=== PATIENT | female | born 1980 | race Caucasian/White ===

== ENCOUNTER 2018-09-29 08:15 | Emergency (ER) | payer OTHER ==
[~2018-09-29] VITALS: Ht 160 cm; Wt 61.4 kg
[~2018-09-29 08:15] MED LIST: PREN1TAB49 PO; RANI150T35 PO; SUCR1TAB56 PO
[2018-09-29 08:17] VITALS: Ht 160 cm; Wt 61.4 kg
[2018-09-29] MEDS ORDERED: FAMOTIDINE 20 MG INJ IV STA (08:29)
[2018-09-29] MEDS ORDERED: LACTATED RINGER'S 1,000 ML IV STA (08:29)
[2018-09-29] MEDS ORDERED: ONDANSETRON 4 MG INJ IV STA (08:29)
--- NOTE | 2018-09-29 08:31 | ERD ---
ER Documentation Chief Complaint Chief Complaint epigastric pain w/vomitting since am HPI 38-year-old female with no significant prior medical history status post remote appendectomy, cholecystectomy, C-sections and bilateral tubal ligation presents to the ED complaining of acute onset of unprovoked, severe, nonradiating, burning epigastric pain that started several hours ago. Nausea with multiple episodes of nonbloody nonbilious emesis. No hematochezia or melena. No relieving or exacerbating factors. Denies dysuria, polyuria, hematuria or flank pain. No vaginal discharge or bleeding. No chest pain, palpitations, shortness of breath or cough. No skin rash. No fevers or chills. Patient reports an ED evaluation 2005 for exactly the same symptoms. ROS All systems reviewed and are negative except as per history of present illness. Medications Home Meds Active Scripts Famotidine* (Pepcid*) 20 Mg Tablet, 20 MG PO BID for 10 Days, TAB Prov:REGIS MONTES MD 09/29/18 Sucralfate* (Carafate*) 1 Gm Tab, 1 GM PO QID for 7 Days, TAB Prov:REGIS MONTES MD 09/29/18 Allergies Allergies: Coded Allergies: ketorolac (Verified Allergy, Mild, ANXIETY, 09/29/18) morphine (Unverified Allergy, Unknown, vision loss, 09/29/18) PMhx/Soc Reviewed in chart. As per HPI. History of Surgery: Yes (APPENDECTOMY, GALLBLADDER REMOVED, X2 ) Anesthesia Reaction: No Hx Neurological Disorder: No Hx Respiratory Disorders: No Hx Cardiac Disorders: No Hx Psychiatric Problems: No Hx Miscellaneous Medical Probl: No Hx Alcohol Use: No Hx Substance Use: No Hx Tobacco Use: No FmHx No cancer or heart disease Physical Exam Vitals Vital Signs Date Temp Pulse Resp B/P (MAP) Pulse Ox O2 O2 Flow FiO2 Time Delivery Rate 09/29/18 106/66 10:21 (79) 09/29/18 98.4 63 16 113/73 100 Room Air 09:32 (86) 09/29/18 97.7 62 18 115/59 100 08:17 (77) Physical Exam Const: Moderate distress Head: Atraumatic Eyes: Normal Conjunctiva. Anicteric ENT: Normal External Ears, Nose and Mouth. Neck: Full range of motion. No lymphadenopathy or tenderness. Breath sounds are equal and Resp: Breath sounds are equal and clear to auscultation bilaterally Cardio: Regular rate and rhythm, no murmurs Abd: Soft, mild epigastric tenderness but no rebound or guarding. No right or left lower quadrant tenderness. Non distended. Normal bowel sounds Skin: No petechiae or rashes Back: No midline or CVA tenderness Ext: No cyanosis, or edema Neur: Awake and alert. No focal deficit Psych: Anxious but not depressed Result Diagram: 09/29/18 0809/29/18 08 Results 24 hrs Laboratory Tests Test 09/29/18 08:53 09/29/18 09:02 White Blood Count 6.0 10^3/ul Red Blood Count 4.45 10^6/ul Hemoglobin 11.7 g/dl Hematocrit 36.7 % Mean Corpuscular Volume 82.5 fl Mean Corpuscular Hemoglobin 26.3 pg Mean Corpuscular Hemoglobin Concent 31.9 g/dl Red Cell Distribution Width 13.8 % Platelet Count 235 10^3/UL Mean Platelet Volume 10.1 fl Immature Granulocytes % 0.500 % Neutrophils % 55.3 % Lymphocytes % 34.0 % Monocytes % 7.2 % Eosinophils % 2.7 % Basophils % 0.3 % Nucleated Red Blood Cells % 0.0 /100WBC Immature Granulocytes # 0.030 10^3/ul Neutrophils # 3.3 10^3/ul Lymphocytes # 2.0 10^3/ul Monocytes # 0.4 10^3/ul Eosinophils # 0.2 10^3/ul Basophils # 0.0 10^3/ul Nucleated Red Blood Cells # 0.0 10^3/ul Urine Color YELLOW Urine Clarity SLIGHTLY CLOUDY Urine pH 5.0 Urine Specific [place] 1.021 Urine Ketones NEGATIVE mg/dL Urine Nitrite NEGATIVE mg/dL Urine Bilirubin NEGATIVE mg/dL Urine Urobilinogen NEGATIVE mg/dL Urine Leukocyte Esterase TRACE Lul/ul Urine Microscopic RBC 2 /HPF Urine Microscopic WBC 2 /HPF Urine Squamous Epithelial Cells FEW /HPF Urine Bacteria FEW /HPF Urine Hemoglobin 1+ mg/dL Urine Glucose NEGATIVE mg/dL Urine Total Protein NEGATIVE mg/dl Sodium Level 139 mmol/L Potassium Level 3.8 mmol/L Chloride Level 107 mmol/L Carbon Dioxide Level 26 mmol/L Anion Gap 6 Blood Urea Nitrogen 14 mg/dl Creatinine 0.59 mg/dl Est Glomerular Filtrat Rate mL/min > 60 mL/min Glucose Level 148 mg/dl Calcium Level 9.0 mg/dl Total Bilirubin 0.3 mg/dl Direct Bilirubin 0.00 mg/dl Indirect Bilirubin 0.3 mg/dl Aspartate Amino Transf (AST/SGOT) 31 IU/L Alanine Aminotransferase (ALT/SGPT) 28 IU/L Alkaline Phosphatase 62 IU/L Total Protein 7.6 g/dl Albumin 4.2 g/dl Globulin 3.40 g/dl Albumin/Globulin Ratio 1.23 Lipase 122 U/L POC Beta HCG, Qualitative NEGATIVE Current Medications Medications Dose Sig/Lisa Start Time Status Last (Trade) Ordered Route PRN Stop Time Admin Dose Reason Admin Lactated 1,000 ml @ Q1H STAT 09/29/18 DC 09/29/18 Ringer's 1,000 mls/hr IV 08:29 09/29/18 08:46 09:28 Ondansetron 4 mg ONCE STAT 09/29/18 DC 09/29/18 HCl (Zofran IV 08:29 09/29/18 08:46 Inj) 08:32 Famotidine 20 mg ONCE STAT 09/29/18 DC 09/29/18 (Pepcid Iv) IV 08:29 09/29/18 08:46 08:32 40 ml ONCE ONCE 09/29/18 DC 09/29/18 Miscellaneous PO 09:00 09/29/18 08:46 Medication 09:01 (Gi Cocktail (2)) 100 ml @ ONCE STAT 09/29/18 DC Levetiracetam 400 mls/hr IVPB 09:46 09/29/18 09:51 Procedures/MDM DOCUMENTS REVIEWED: ED nurse, prior ED, prior records LAB INTERPRETATION: CBC to evaluate for leukocytosis, anemia and thrombocytopenia is unremarkable. Chemistry reveals no evidence of electrolyte abnormalities or renal insufficiency. Liver function tests to evaluate for hyperbilirubinemia and transaminitis is negative. Lipase to evaluate for pancreatitis is negative. REEVALUATION: Time: 09:22. Doing well. Pain resolved. Abdomen soft, nontender. MEDICAL DECISION MAKIN-year-old female with no significant prior medical history status post remote appendectomy, cholecystectomy, C-sections and bilateral tubal ligation presents to the ED complaining of acute, burning epigastric. No hyperbilirubinemia, elevated liver function tests or signs of biliary pathology or retained stone. No elevated lipase or pancreatitis. Patient is not . No urinary tract infection or pyelonephritis. 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 Presentation consistent with gastritis/GERD versus peptic ulcer disease and pain relieved with intravenous H2 blockers and GI cocktail. No evidence of GI bleeding. Abdominal exam is benign without significant tenderness, rebound, guarding, signs of peritonitis or indication for advanced imaging. Stable for discharge with Pepcid, Carafate, Zofran precautionary instructions and o utpatient follow-up as counseled. Counseled patient and family regarding diagnostic workup, diagnosis and need for followup. Understands to return to ED if symptoms recur, worsen or any other concerns. Departure Diagnosis: Primary Impression: Abdominal pain, acute, epigastric Additional Impression: Acute gastritis without bleeding Gastritis type: unspecified gastritis Qualified Codes: K29.00 - Acute gastritis without bleeding Condition: Stable (Improved) REGIS MONTES MD Sep 29, 2018 08:30
[2018-09-29] MEDS ORDERED: LIDOCAINE/MYLANTA 40 ML BTL PO ONE (09:00)
[2018-09-29 09:32] VITALS: PULSE 63; RESP 16
[2018-09-29] MEDS ORDERED: LEVETIRACETAM 1000 MG (PMX) 100 ML IVPB STA (09:46)
[2018-09-29] MEDS ORDERED: SUCR1TAB56 PO (10:04)
[2018-09-29] MEDS ORDERED: FAMO-96 PO (10:04)
[2018-09-29 10:21] VITALS: BP 106/66
== END 2018-09-29 10:01 | disposition home or self-care (01) ==
LOC: E/R 08:15
DX: K29.00 Acute gastritis without bleeding (principal)
CPT/HCPCS: 36415; 80053; 81001; 81025; 83690; 85025; 96361; 96374; 96375; J1953; J2405; J7120; Z7502; Z7610

== ENCOUNTER 2019-02-20 22:43 | Emergency (ER) | payer OTHER ==
[~2019-02-20] VITALS: Ht 160 cm; Wt 65.9 kg
[~2019-02-20 22:43] MED LIST changes: +FAMO-96 PO; -PREN1TAB49 PO; -RANI150T35 PO
[2019-02-20 22:55] VITALS: Ht 160 cm; Wt 65.9 kg
[2019-02-20] MEDS ORDERED: SOD CHLORIDE 0.9% 1,000 ML IV STA (23:24)
[2019-02-20] MEDS ORDERED: ONDANSETRON 4 MG INJ IV STA (23:24)
[2019-02-20] MEDS ORDERED: ACETAMINOPHEN 325 MG TAB PO ONE (23:30)
[2019-02-21] MEDS ORDERED: IOHEXOL 300MG/ML 150 ML BTL ONE (00:45)
[2019-02-21] MEDS ORDERED: SOD CHLORIDE 0.9% 100 ML ONE (00:45)
[2019-02-21] MEDS ORDERED: IBUP-1542 PO (01:15)
[2019-02-21 01:35] VITALS: BP 109/54; PULSE 64; RESP 17
--- NOTE | 2019-02-21 04:05 | ERD ---
ER Documentation Chief Complaint Chief Complaint HAs, fatigue, chills x 2 days HPI 38-year-old female presents to the emergency department complaining of intermittent fevers, chills, myalgia and left lower quadrant pain which is curr ently rated 6/10 in severity. She took some Advil at home with relief. He denies sore throat, dysuria, cough, nausea, vomiting, diarrhea, nasal congestion, or other symptoms at this time. ROS All systems reviewed and are negative except as per history of present illness. Medications Home Meds Active Scripts Ibuprofen* (Motrin*) 600 Mg Tab, 600 MG PO Q6, #30 TAB Prov:SIGRID THOMPSON PA-C 02/21/19 Famotidine* (Pepcid*) 20 Mg Tablet, 20 MG PO BID for 10 Days, TAB Prov:REGIS MONTES MD 09/29/18 Sucralfate* (Carafate*) 1 Gm Tab, 1 GM PO QID for 7 Days, TAB Prov:REGIS MONTES MD 09/29/18 Allergies Allergies: Coded Allergies: ketorolac (Verified Allergy, Mild, ANXIETY, 09/29/18) morphine (Unverified Allergy, Unknown, vision loss, 09/29/18) PMhx/Soc History of Surgery: Yes (APPENDECTOMY, GALLBLADDER REMOVED, X2, TUBAL LIGATION) Anesthesia Reaction: No Hx Neurological Disorder: No Hx Respiratory Disorders: No Hx Cardiac Disorders: No Hx Psychiatric Problems: No Hx Miscellaneous Medical Probl: No Hx Alcohol Use: No Hx Substance Use: No Hx Tobacco Use: No Smoking Status: Never smoker FmHx Family History: No diabetes Physical Exam Vitals Vital Signs Date Temp Pulse Resp B/P (MAP) Pulse Ox O2 O2 Flow FiO2 Time Delivery Rate 02/21/19 97.8 64 17 109/54 99 Room Air 01:35 (72) 02/20/19 98.4 67 18 106/53 100 22:55 (70) Physical Exam Const: No acute distress Head: Atraumatic Eyes: Normal Conjunctiva ENT: Normal External Ears, Nose and Mouth. Neck: Full range of motion. No meningismus. Resp: Clear to auscultation bilaterally Cardio: Regular rate and rhythm, no murmurs Abd: Soft, tenderness palpation of the left lower quadrant without rebound tenderness or guarding, no McBurney's point tenderness, non distended. Normal bowel sounds Skin: No petechiae or rashes Back: No midline or flank tenderness Ext: No cyanosis, or edema Neur: Awake and alert Psych: Normal Mood and Affect Result Diagram: 02/20/19 2338 02/20/19 2338 Results 24 hrs Laboratory Tests Test 02/20/19 23:38 02/21/19 00:00 White Blood Count 7.2 10^3/ul Red Blood Count 4.39 10^6/ul Hemoglobin 11.8 g/dl Hematocrit 36.7 % Mean Corpuscular Volume 83.6 fl Mean Corpuscular Hemoglobin 26.9 pg Mean Corpuscular Hemoglobin Concent 32.2 g/dl Red Cell Distribution Width 13.5 % Platelet Count 209 10^3/UL Mean Platelet Volume 10.1 fl Immature Granulocytes % 0.100 % Neutrophils % 63.0 % Lymphocytes % 26.0 % Monocytes % 5.8 % Eosinophils % 4.7 % Basophils % 0.4 % Nucleated Red Blood Cells % 0.0 /100WBC Immature Granulocytes # 0.010 10^3/ul Neutrophils # 4.6 10^3/ul Lymphocytes # 1.9 10^3/ul Monocytes # 0.4 10^3/ul Eosinophils # 0.3 10^3/ul Basophils # 0.0 10^3/ul Nucleated Red Blood Cells # 0.0 10^3/ul Prothrombin Time 12.0 Sec Prothrombin Time Ratio 0.9 INR International Normalized Ratio 0.88 Activated Partial Thromboplast Time 30.9 Sec Urine Color COLORLESS Urine Clarity CLEAR Urine pH 7.0 Urine Specific [place] 1.004 Urine Ketones NEGATIVE mg/dL Urine Nitrite NEGATIVE mg/dL Urine Bilirubin NEGATIVE mg/dL Urine Urobilinogen NEGATIVE mg/dL Urine Leukocyte Esterase NEGATIVE Lul/ul Urine Microscopic RBC 1 /HPF Urine Microscopic WBC 0 /HPF Urine Squamous Epithelial Cells FEW /HPF Urine Hemoglobin 1+ mg/dL Urine Glucose NEGATIVE mg/dL Urine Total Protein NEGATIVE mg/dl Sodium Level 143 mmol/L Potassium Level 4.1 mmol/L Chloride Level 105 mmol/L Carbon Dioxide Level 27 mmol/L Anion Gap 11 Blood Urea Nitrogen 14 mg/dl Creatinine 0.67 mg/dl Est Glomerular Filtrat Rate mL/min > 60 mL/min Glucose Level 105 mg/dl Calcium Level 9.0 mg/dl Total Bilirubin 0.3 mg/dl Direct Bilirubin 0.00 mg/dl Indirect Bilirubin 0.3 mg/dl Aspartate Amino Transf (AST/SGOT) 29 IU/L Alanine Aminotransferase (ALT/SGPT) 30 IU/L Alkaline Phosphatase 59 IU/L Total Protein 7.5 g/dl Albumin 4.2 g/dl Globulin 3.30 g/dl Albumin/Globulin Ratio 1.27 Lipase 219 U/L POC Beta HCG, Qualitative NEGATIVE Current Medications Medications Dose Sig/Lisa Start Time Status Last (Trade) Ordered Route PRN Stop Time Admin Dose Reason Admin Sodium 1,000 ml @ Q1H STAT 02/20/19 DC 02/20/19 Chloride 1,000 mls/hr IV 23:24 23:52 02/21/19 00:23 Ondansetron 4 mg ONCE STAT 02/20/19 DC 02/20/19 HCl (Zofran IV 23:24 23:54 Inj) 02/20/19 23:31 650 mg ONCE ONCE 02/20/19 DC 02/20/19 Acetaminophen PO 23:30 23:55 (Tylenol 02/20/19 23:31 Tab) Sodium 100 ml @ ud STK-MED 02/21/19 DC Chloride ONCE .ROUTE 00:45 02/21/19 00:46 Iohexol 150 ml STK-MED 02/21/19 DC (Omnipaque ONCE .ROUTE 00:45 300mg/ ml) 02/21/19 00:46 [place] [id number] Radiology Main Line: [phone] DIAGNOSTIC IMAGING REPORT Patient: JAME OLIVAS : 1980 Age: 38 Sex: F [id number] DOS: 02/20/19 2324 Ordering MD: SIGRID THOMPSON PA-C Location: [facility] Room/Bed: PROCEDURE: CT Abdomen and Pelvis with contrast. CLINICAL INDICATION: Abdominal pain. TECHNIQUE: CT scan of the abdomen and pelvis with contrast was performed on a multi-detector high-resolution CT scanner. The patient was scanned following the uncomplicated intravenous administration of 100 cc of Omnipaque 300. Coronal and sagittal reformatted images were obtained from the axial source images. Images were reviewed on a high-resolution PACS workstation. The total exam CTDI equals 8 mGy and the total exam DLP equals 457 mGy-cm. DICOM images are available. 3-D reconstructions were notperformed. One or more of the following dose reduction techniques were utilized: 1.) Automated exposure control 2.) Adjustment of the mA +/- kV according to patient's size 3.) Use of iterative reconstruction technique. COMPARISON: None. FINDINGS: CT abdomen: Heart (where visible): Unremarkable. Lung bases: No evidence of pneumonia, mass, pleural effusion. Liver: Normal attenuation. Enlarged, measuring 21.1 cm in length No visible focal mass. Biliary ductal system: No evidence of significant dilatation. Gallbladder: Surgically absent. Pancreas: Unremarkable Stomach: No identifiable focal mass or gross wall thickening. Spleen: No gross splenomegaly. Abdominal colon: Normal in caliber and course. Abdominal small bowel: Normal in caliber, course, and mucosal pattern. Adrenal glands: No visible masses. Right Kidney: Normal in size and contour without focal mass or collecting system dilatation. Left kidney: Normal in size and contour without focal mass or collecting system dilatation. Abdominal aorta: Normal caliber. Lymph nodes: No significantly enlarged nodes. CT pelvis: Pelvic colon: Normal in caliber and course. No evidence of inflammatory change. Pelvic small bowel: Normal in caliber and course. Appendix: Not identified. No evidence of inflammation. Urinary bladder: Normal in size and contour without visible wall thickening. Reproductive structures: The uterus is retroflexed. The uterus and adnexa are otherwise unremarkable. There is no free fluid in the pelvis. . Bony structures included in the scan: No clinically significant abnormalities. IMPRESSION: 1. Surgical absence of the gallbladder. 2. Mild hepatomegaly. 3. Otherwise unremarkable CT of the abdomen and pelvis with no evidence of bowel obstruction, bowel perforation, urinary tract stone, urinary tract obstruction, or focal inflammatory process. . RPTAT:AAJJ Physician Salomón Date Time Electronically viewed and signed by Physician Salomón on 02/21/2019 01:06 GW/ CC: SIGRID THOMPSON PA-C [id number] Procedures/MDM 38-year-old female presenting to the emergency department complaints of left lower quadrant pain and body aches and fevers and chills. CT abdomen and pelvis with contrast showed no significant acute abnormalities. CBC: no e/o of systemic infection or severe anemia CMP: no e/o severe acidosis, alkalosis, renal failure, diabetic ketoacidosis, liver disease Lipase: no e/o pancreatitis PT/INR: normal coagulation Urine: no e/o acute infection or hematuria Medical decision making: Symptoms may be secondary to muscle spasm or other nonemergent cause. Patient's gastrointestinal symptoms have stabilized while in the department. No evidence of severe dehydration, sepsis, or surgical abdomen. Extensive discussion with family and patient that occult disease cannot be ruled out. 8 hour recheck for repeat abdominal exam is planned. No evidence of life-threatening pathology at time of discharge. Pt/family in agreement with discharge plan/diagnosis. Pt/family advised to return immediately with any new or worsening symptoms. Follow-up with primary care physician within the next 1-2 days. Departure Diagnosis: Primary Impression: Abdominal pain Condition: Fair Patient Instructions: Abdominal Pain Referrals: [facility] YOU HAVE RECEIVED A MEDICAL SCREENING EXAM AND THE RESULTS INDICATE THAT YOU DO NOT HAVE A CONDITION THAT REQUIRES URGENT TREATMENT IN THE EMERGENCY DEPARTMENT. FURTHER EVALUATION AND TREATMENT OF YOUR CONDITION CAN WAIT UNTIL YOU ARE SEEN IN YOUR DOCTORS OFFICE WITHIN THE NEXT 1-2 DAYS. IT IS YOUR RESPONSIBILITY TO MAKE AN APPOINTMENT FOR FOLOW-UP CARE. IF YOU HAVE A PRIMARY DOCTOR --you should call your primary doctor and schedule an appointment IF YOU DO NOT HAVE A PRIMARY DOCTOR YOU CAN CALL OUR PHYSICIAN REFERRAL HOTLINE AT IF YOU CAN NOT AFFORD TO SEE A PHYSICIAN YOU CAN CHOSE FROM THE FOLLOWING [facility] [address] [facility] [address] [facility] [address] [facility] [address] [facility] [address] [facility] [facility]. [address] Additional Instructions: Call your primary care doctor TOMORROW for an appointment during the next 1-2 days.See the doctor sooner or return here if your condition worsens before your appointment time. SIGRID THOMPSON PA-C Feb 21, 2019 04:05
== END 2019-02-21 01:35 | disposition home or self-care (01) ==
LOC: FTE 22:43
DX: R10.32 Left lower quadrant pain (principal)
CPT/HCPCS: 36415; 74177; 80053; 81001; 81025; 83690; 85025; 85610; 85730; 87400; 96374; J2405; J7030; Q9967; Z7502; Z7610